=== PATIENT | female | born 1970 | race Caucasian/White ===

== ENCOUNTER 2017-10-22 10:36 | Emergency (ER) | payer SELFPAY ==
[2017-10-22 10:53] VITALS: BP 149/77; PULSE 83; RESP 22; TEMP 98.6; O2SAT 96
--- NOTE | 2017-10-22 11:02 | PD ---
HPI Chief Complaint: Fall Time Seen by Provider: 11:02 Travel History International Travel<30 days: No Contact w/Intl Traveler<30days: No Traveled to known affect area: No History of Present Illness HPI 46-year-old female came to the emergency room with history of neck pain from a fall 2 weeks ago. However upon asking she points more to the occipital area of her skull with the pain. She has been functional so far. She just says that it hurts to move her head and points to bilateral symmetrical side of the occiput. No radiation of the pain. Patient also is homeless and has been sleeping in her car for past few days. She has history of chronic back pain and has been taking her gabapentin but says this pain is not helping with the gabapentin. She takes psych medications and has to call her doctor at home to get the refills. Vital signs are stable. She otherwise appears to be in no distress. [facility] Past Medical History Narrative Medical List of her past medical, surgical, social and family history is reviewed from the nursing note. Social History Tobacco Use: Yes Allergies-Medications (Allergen,Severity, Reaction): Coded Allergies: tramadol (Verified Allergy, Mild, Itching, 10/22/17) MUSCLE SPASMS Comments List of her allergies reviewed from the nursing note. Reported Meds & Prescriptions Reported Meds & Active Scripts Active Flexeril (Cyclobenzaprine HCl) 5 Mg Tab 5 Mg PO TID Ibuprofen 600 Mg Tab 600 Mg PO Q6H PRN Reported Prozac (Fluoxetine HCl) 40 Mg Cap 40 Mg PO DAILY Gabapentin 600 Mg Tab 600 Mg PO TID Narrative Medication Awaiting for the nurse to do the med reconciliation Review of Systems Except as stated in HPI: all other systems reviewed are Neg Musculoskeletal: Positive: Pain Physical Exam Narrative GENERAL: Awake, alert, no obvious distress SKIN: Focused skin assessment warm/dry. HEAD: Atraumatic. Normocephalic. EYES: Pupils equal and round. No scleral icterus. No injection or drainage. ENT: No nasal bleeding or discharge. Mucous membranes pink and moist. NECK: Trachea midline. No JVD. No step-offs or midline tenderness CARDIOVASCULAR: Regular rate and rhythm. No murmur appreciated. RESPIRATORY: No accessory muscle use. Clear to auscultation. Breath sounds equal bilaterally. GASTROINTESTINAL: Abdomen soft, non-tender, nondistended. Hepatic and splenic margins not palpable. MUSCULOSKELETAL: No obvious deformities. No clubbing. No cyanosis. No edema. NEUROLOGICAL: Awake and alert. No obvious cranial nerve deficits. Motor grossly within normal limits. Normal speech. PSYCHIATRIC: Appropriate mood and affect; insight and judgment normal. Data Data Last Documented VS Orders Orders Ibuprofen (Motrin) (10/22/17 11:15) Cyclobenzaprine (Flexeril) (10/22/17 11:15) Ed Discharge Order (10/22/17 11:15) [facility] Medical Decision Making Medical Screen Exam Complete: Yes Emergency Medical Condition: Yes Medical Record Reviewed: Yes Differential Diagnosis Neck strain, musculoskeletal pain Narrative Course 11:18 AM given the fact that patient has no point tenderness and the pain is not midline and the injury happened 2 weeks ago I am comfortable discharging her home without any imaging. She will be given some pain medication here. Patient is comfortable with that plan. Procedures EKG Prior to Arrival: No Diagnosis Primary Impression: Musculoskeletal pain Referrals: [facility] Additional Instructions: Follow-up with the walk-in clinic whose address has been provided to you on this discharge instruction. Take the medication as per the prescription direction. Med/Other Pt SpecificInfo: Prescription(s) given Scripts Cyclobenzaprine (Flexeril) 5 Mg Tab 5 MG PO TID for Muscle Spasm, #9 TAB 0 Refills Prov: Teo Das MD 10/22/17 Ibuprofen (Ibuprofen) 600 Mg Tab 600 MG PO Q6H Y for Pain/Inflammation, #40 TAB 0 Refills Prov: Teo Das MD 10/22/17 Disposition: 01 DISCHARGE HOME Condition: Stable Teo Das MD October 22, 2017 11:02
[2017-10-22] MEDS ORDERED: IBUPROFEN 600 MG TAB PO ONE (11:15)
[2017-10-22] MEDS ORDERED: CYCLOBENZAPRINE HCL 10 MG TAB PO ONE (11:15)
[2017-10-22] MEDS ORDERED: IBUP-232 PO (11:19)
[2017-10-22] MEDS ORDERED: CYCL5TAB PO (11:19)
[2017-10-22] MEDS ORDERED: GABA600T PO (11:24)
[2017-10-22] MEDS ORDERED: PROZ40CA PO (11:24)
== END 2017-10-22 11:32 | disposition home or self-care (01) ==
LOC: NEPD 10:36
DX: M79.1 Myalgia (principal); Z72.0 Tobacco use
CPT/HCPCS: 99283